=== PATIENT | female | born 1980 | race Hispanic/Latino ===

== ENCOUNTER 2017-08-06 09:25 | Day surgery (SDC) | payer MEDICAID, SELFPAY ==
[2017-08-06 10:07] LABS: Bilirubin Negative (Negative); Blood, Urine Moderate (Negative); Glucose, Urine (Dipstick) Negative (Negative); Leukocyte Negative (Negative); Nitrite Negative (Negative); Protein, Urine (Dipstick) Trace mg/dL (Neg-Trace); Urobilinogen 0.2 mg/dL (0.2-1.0); pH, Urine 8.5 (5.0-9.0)
[2017-08-06 10:15] LABS: Clarity Cloudy (Clear)
[2017-08-06 10:19] LABS: #Eosinphils 0.1 thou/uL (0.0-0.7); #Lymphocytes 0.6 thou/uL (1.20-3.40); #Monocytes 0.2 thou/uL (0.11-0.59); #Neutrophils 10.4 thou/uL (1.40-6.50); %Basophils 0.2 % (0.0-1.0); %Eosinophils 0.5 % (0.0-10.0); %Lymphocytes 5.4 % (21.0-51.0); %Monocytes 2.1 % (0.0-10.0); %Neutrophils 91.8 % (42.0-75.0); Hemoglobin 12.9 g/dL (12.0-16.0); Mean Corpuscular HGB CONC 32.8 g/dL (32.0-36.0); Mean Corpuscular Hemoglobin 29.1 pg (27.0-31.0); Mean Corpuscular Volume 88.6 fl (81.0-99.0); Mean Platelet Volume 6.7 fL (7.4-10.4); Platelet Count 295 thou/uL (130-400); RBC Distribution Width 13.1 % (11.5-14.5); Red Blood Cell (RBC) Count 4.43 mill/uL (4.20-5.40); White Blood Cell (WBC) Count 11.3 thou/uL (4.8-10.8)
[2017-08-06] MEDS ORDERED: Morphine 4 MG/ML VIAL ONE (10:24)
[2017-08-06] MEDS ORDERED: Ondansetron HCl/PF 4 MG/2 ML Vial ONE (10:24)
[2017-08-06 10:26] LABS: Bacteria/HPF None Seen HPF (None Seen); RBC/HPF 0-3 HPF (0-3); Squamous Epithelial 0-3 HPF (0-3); WBC/HPF 0-3 HPF (0-3)
[2017-08-06 10:29] LABS: ALT (SGPT) 28 U/L (8-55); AST (SGOT) 21 U/L (5-34); Albumin 4.3 g/dL (3.5-5.0); Alkaline Phosphatase 79 U/L (40-150); Anion Gap 14 mmol/L (10-20); BUN (Urea Nitrogen) 14 mg/dL (7.0-18.7); Bilirubin, Total 0.3 mg/dL (0.2-1.2); Calc. Creatinine Clearance 0 mL/min (70-130); Calcium 9.1 mg/dL (7.8-10.44); Carbon Dioxide 21 mmol/L (22-29); Chloride 105 mmol/L (98-107); Estimated GFR-MDRD Greater than 90; Globulin 3.4 g/dL (2.4-3.5); Glucose 140 mg/dL (70-105); Lipase 14 U/L (8-78); Potassium 3.7 mmol/L (3.5-5.1); Protein, Total 7.7 g/dL (6.0-8.3); Sodium 136 mmol/L (136-145)
[2017-08-06 10:32] LABS: Hyaline Casts/LPF NONE SEEN LPF (0-3 Hyaline)
--- NOTE | 2017-08-06 11:11 | CT ---
CT ABDOMEN AND PELVIS WITH IV CONTRAST: Date: 08/06/17 PROVIDED CLINICAL HISTORY: Lower abdominal pain. FINDINGS: The visualized lung bases are free of significant opacity. The liver, spleen, pancreas, kidneys, and adrenal glands demonstrate an unremarkable CT appearance. There is an appendicolith noted within the proximal aspect of the appendix. The appendiceal mucosa ap pears mildly thickened and hyperemic about the appendicolith and mildly dilated proximal to the appen dicolith. The more distal appendix appears mildly hyperemic, but not dilated. There is no bowel dilatation, inflammatory fat stranding, or free air apparent. There is mild free pe lvic fluid present, with heterogeneity of the uterine myometrium and adnexal regions, all likely on t he basis of phase of menstruation. The osseous structures demonstrate no concerning osteoblastic or osteolytic lesions. IMPRESSION: 1. Findings suspicious for early acute appendicitis. 2. Mild free pelvic fluid, possibly physiologic in nature. POS: SHELLEY
[2017-08-06] MEDS ORDERED: Piperacillin/Tazobactam 4.5 GM in Sodium Chloride 0.9% 100 ML IVPB SCH (13:00)
[2017-08-06] MEDS ORDERED: Ketorolac Tromethamine 30 MG/ML VIAL ONE (13:06)
[2017-08-06] MEDS ORDERED: Scopolamine 1.5 mg/72 hour Patch ONE (13:15)
[2017-08-06] MEDS ORDERED: Bupivacaine HCl 0.5%/Epinephrine 1:200,000/PF 30 ml Vial ONE (13:29)
--- NOTE | 2017-08-06 13:34 | HP ---
DATE OF ADMISSION: 08/06/2017 HISTORY OF PRESENT ILLNESS: This is a 37-year-old female onset of right lower quadrant pain early th is morning presented to emergency room. CAT scan confirmed appendicitis. She has suffered anorexia, increased pain with movement. She has never had such pain before. ALLERGIES: None. TOBACCO: None. ALCOHOL: None. MEDICATIONS: None. PAST SURGICAL HISTORY: , tubal ligation. PAST MEDICAL HISTORY: Noncontributory. REVIEW OF SYSTEMS: Ten point noncontributory. SOCIAL HISTORY: She is . 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 PHYSICAL EXAMINATION: VITAL SIGNS: 58 kilograms, 18, 97.5 degrees, 161/91, 63. HEENT: Unremarkable. LUNGS: Clear to auscultation. CARDIAC: Regular rate and rhythm without murmur. ABDOMEN: Soft, nontender, tenderness in right lower quadrant, guarding, rebound. EXTREMITIES: Unremarkable. ASSESSMENT AND PLAN: Acute appendicitis. Recommend laparoscopic video appendectomy. Risk of infect ion, bleeding, visceral injury, reoperation, open procedure explained. Questions answered.
[2017-08-06] MEDS ORDERED: Midazolam HCl 2 mg/2 ml Vial ONE (13:35)
[2017-08-06] MEDS ORDERED: Fentanyl 250 MCG/5 ML VIAL ONE (13:35)
[2017-08-06] MEDS ORDERED: HYDROmorphone 0.5 MG/0.5 ML SYRINGE ONE (13:35)
[2017-08-06 13:44] LABS: BHCG - Serum Negative (NEGATIVE); Pregs Control Background? CLEAR/WHITE (CLR/WHITE); Pregs Control Bar Appear? YES (CONTROL BAR)
[2017-08-06] MEDS ORDERED: ISOVUE-370 76%-LOCM 1 ML ONE (14:00)
--- NOTE | 2017-08-06 15:13 | OP ---
DATE OF PROCEDURE: 08/06/2017 PREOPERATIVE DIAGNOSIS: Acute appendicitis. POSTOPERATIVE DIAGNOSIS: Acute appendicitis. PROCEDURE: Laparoscopic video appendectomy. SURGEON: Germain Vanessa M.D. ANESTHESIA: General. Local 0.5% Marcaine with epinephrine, 30 mL. DESCRIPTION OF PROCEDURE: Patient was taken to the operating room where under general anesthesia, ab lara was prepared with ChloraPrep and draped in routine fashion. Recinos catheter placed at the begin nirmal of the procedure and removed at the end. Pneumoperitoneum to 15 mmHg obtained with Veress needl e placed at right subcostal lateral. Pneumoperitoneum to 15 mmHg obtained and Veress needle replaced with a 5 port video laparoscope inserted. There are few omental adhesions around the umbilicus, but in an adhesion free area. A 5 mm port placed through a periumbilical incision and then suprapubic i ncision made and a 12 port placed. Appendix acutely inflamed. Mesoappendix was taken down with the LigaSure to the stump of the appendix dividing the cecal stump with Endo blue load DEION stapler, stapl ed with cecal stump. Hemostasis gained with clips. Good hemostasis noted. Area irrigated and irrig ant evacuated. Good hemostasis noted. Pneumoperitoneum evacuated and all this was removed and supra pubic fascia approximated with 0 Vicryl, and the skin with continuous subdermal suture of 4-0 Monocry l. Patient tolerated the procedure well.
[2017-08-06] MEDS ORDERED: Lidocaine 1% PF 5 ML VIAL ONE (17:06)
[2017-08-06] MEDS ORDERED: Propofol 200 MG/20 ML VIAL ONE (17:06)
[2017-08-06] MEDS ORDERED: Glycopyrrolate 0.2 MG/ML 5 ML SYRINGE ONE (17:06)
[2017-08-06] MEDS ORDERED: Dexamethasone 20 MG/5 ML VIAL ONE (17:06)
== END 2017-08-06 16:00 | disposition home or self-care (01) ==
LOC: ERS 09:25 → SDC 13:49
PROVIDERS: ATTEND Specialist
PROC: 0DTJ4ZZ Resection of Appendix, Percutaneous Endoscopic Approach (ICD-10-PCS; principal; 2017-08-06)
DX: K36 Other appendicitis (principal)
CPT/HCPCS: 74177; 80053; 81003; 81015; 83690; 84703; 85025; 88304; 96374; 96375; J0131; J0670; J1100; J1170; J1885; J2001; J2250; J2270; J2405; J2543; J2704; J3010; J7050

== ENCOUNTER 2017-09-25 08:47 | Emergency (ER) | payer OTHER, SELFPAY ==
[2017-09-25] MEDS ORDERED: Bacitracin Zinc 1 Packet ONE (09:00)
[2017-09-25] MEDS ORDERED: Adacel (T-DAP) 0.5 ML VIAL ONE (09:00)
[2017-09-25] MEDS ORDERED: Lidocaine 1% w/Epinephrine 1:100K 20 ML VIAL ONE (09:53)
--- NOTE | 2017-09-25 09:53 | RAD ---
LEFT LEG 2 VIEWS: Date: 09/25/17 HISTORY: Injury, left leg pain. FINDINGS/IMPRESSION: The left tibia and fibula are intact. POS: MATIASH
--- NOTE | 2017-09-25 09:54 | RAD ---
RIGHT FOREARM 2 VIEWS: Date: 09/25/17 HISTORY: Injury. Right forearm pain. FINDINGS/IMPRESSION: The right radius and ulna appear intact. POS: MATIASH
--- NOTE | 2017-09-25 09:54 | RAD ---
RIGHT LEG 2 VIEWS: Date: 09/25/17 HISTORY: Injury, right leg pain. FINDINGS/IMPRESSION: The distal aspects of the medial and lateral malleoli have been excluded from the film on the frontal image. The visualized portions of the right tibia and fibula are otherwise intact. POS: SHELLEY
[2017-09-25] MEDS ORDERED: Ibuprofen 200 MG TAB ONE (10:11)
== END 2017-09-25 10:22 | disposition home or self-care (01) ==
LOC: ERS 08:47
DX: S81.811A Laceration without foreign body, right lower leg, initial encounter (principal); S50.11XA Contusion of right forearm, initial encounter; S90.01XA Contusion of right ankle, initial encounter; V45.5XXA Car driver injured in collision with railway train or railway vehicle in traffic accident, initial encounter
CPT/HCPCS: 12001; 90471; 90715; G0390; J2001